=== PATIENT | female | born 1965 | race Two or more races ===

== ENCOUNTER 2025-07-06 18:52 | Emergency (ER) | payer OTHER, SELFPAY ==
[2025-07-06 18:56] VITALS: BP 123/73; PULSE 112; RESP 18; TEMP 36.8; O2SAT 94
[2025-07-06 18:59] VITALS: BMI 26.6
[2025-07-06 19:00] VITALS: PULSE 111; RESP 16; O2SAT 98
--- NOTE | 2025-07-06 19:07 | PD.EDSYNC ---
ED Syncope RME/HPI General Stated Complaint: SYNCOPE Time Seen by Provider: 07/06/25 19:21 Arrival date/time: 07/06/25 18:52 RME / HPI RME / HPI narrative: This section includes all my notes and documentations, including HPI, PE, and ED course. Pepe Ku MD HPI: 59 y/o female with Hx of HTN presents with near syncopal episode just [employer]. Patient was sitting on the toilet after BM when she began feeling nauseated and lightheaded. She almost passed out. Patient remained seated on the toilet and but did not pass out and did not fall. Denies headache, chest pain runny nose, vomiting, abdominal pain, fever, or recent illness. Currently, feels almost back to normal. No other complaints. ROS: All negative except as documented in HPI. Physical Exam: General: Alert and oriented. No acute distress. Eyes: Conjunctivae and lids clear. EOMI. PERRL. ENT: No signs of head trauma. Neck: Supple. No carotid bruit. No JVD. Heart: RRR. Lungs: No respiratory distress. Good air movement. No rhonchi, wheezing, rales. Chest: No tenderness. Abdomen: Soft and nontender. Normal bowel sounds. No distension. No rebound or guarding. Back: No tenderness. Legs: No clubbing, cyanosis, edema. Skin: Warm and dry. Neuro: Alert and oriented X 3. Cranial Nerves II-XII grossly intact. No peripheral motor deficits. Musculoskeletal: All major joints and bones are not tender with no limited ROM. I reviewed EMS notes. I reviewed all diagnostic test results: My interpretation of the EKG is: Sinus tachycardia (109 bpm) with nonspecific ST-T changes. My interpretation of the chest x-ray is: NAD. My review of the Head/Brain CT report is: NAD. Blood tests and urine tests unremarkable except Mg 1.5. Covid/Influenza: Negative. At this point, diagnoses include: Hypomagnesemia and vasovagal episode. Treatment here included: IVF, Zofran 4 mg, and MgSO4 2 gram IV. She felt much better. Recommended more outpatient workup. Based on my best medical judgment, made decision no further evaluation or treatment indicated at this time. Patient understands and agrees to the discharge instructions customized and printed, see below. Discharge instructions from Dr. Ku: 1. After extensive evaluation, there is no life-threatening condition.? Such as stroke or brain tumor or heart attack or pulmonary embolism (blood clots in your lungs) or pneumothorax (collapsed lung). 2. You had a vasovagal episode, see attached handout. Everyone has this vasovagal reflex. When triggered, your heart slows down and your brain does not get enough blood flow and passed out or almost passed out. Pushing too hard during bowel movements is a common trigger. 3. Your magnesium level was very low today and you were given IV magnesium. Increase food rich in magnesium. Such as green and leafy vegetables and peanuts and almonds and cashews. 4. See a private doctor on 07/07/2025 for recheck and further care, including second opinion. Ask to review all test results and official radiology reports, to make sure you receive all necessary follow-ups and monitoring, including repeat magnesium. To make sure there is no serious underlying heart condition, ask to help you get more tests for your heart that cannot be done here in the ER.? Such as Holter Monitor (cardiac monitoring at home from a day to even a month), heart stress test (on treadmill or with medication), echocardiogram (imaging of your heart structures), heart catherization (checking for blockages in your heart arteries), and a referral to see a Purchase Request Editor. 5. Seek immediate medical care with worsening or with any concerns.?? Pepe Ku MD Related Data Home Medications ?Medication ?Instructions ?Recorded ?Confirmed hydrochlorothiazide 12.5 mg capsule 12.5 mg PO QDAY 11/06/19 11/06/19 Previous Rx's ?Medication ?Instructions ?Recorded azithromycin 250 mg tablet See Rx Instructions PO .COMPLEX #6 10/25/20 tabs diphenhydramine HCl 25 mg capsule 25 mg PO Q8H PRN allergic symptoms 12/10/20 (Benadryl) #30 caps diphenhydramine HCl 25 mg capsule 50 mg (2 x 25 mg) PO TID PRN 03/23/21 (Benadryl) itching #30 caps benzonatate 100 mg capsule 100 mg PO TID PRN cough #20 caps 03/30/22 cetirizine 10 mg capsule (Zyrtec) 10 mg PO QDAY PRN allergy symptoms 03/30/22 #30 caps Allergies Allergy/AdvReac Type Severity Reaction Status Date / Time codeine AdvReac Intermediate Abdominal Verified 07/06/25 19:00 Pain Review of Systems Review of Systems Systems Reviewed: All systems reviewed, normal except as documented Past Medical History Past Medical History CARDIAC: Positive Hypercholesterolemia and Hypertension ED Exam Narrative Physical exam: Refer to HPI Course Course Course Narrative: CXR is ordered for determining the etiology of shortness of breath. Quality Measures none Orders Category Date Time Status Bedside COVID-19 Antigen Test NOW Care 07/06/25 19:08 Completed Bedside Influenza A&B Antigen Test NOW Care 07/06/25 19:08 Completed EKG (ED ONLY) *Do not use* NOW Care 07/06/25 19:09 Completed Saline [Insert IV] NOW Care 07/06/25 19:08 Completed Straight [In and Out Catheter] X1 Care 07/06/25 19:[address] head/brain wo con Stat Exams 07/06/25 19:09 Completed EKG (ED Only) Stat Exams 07/06/25 19:09 Draft XR chest 1V portable Stat Exams 07/06/25 19:09 Completed Alcohol, Blood Medical Stat Lab 07/06/25 19:38 Completed BNP [B-Type Natriuretic Peptide] Stat Lab 07/06/25 19:38 Completed Bilirubin,Direct Stat Lab 07/06/25 19:38 Completed CBC Stat Lab 07/06/25 19:38 Completed CMP [Comprehensive Metabolic Panel] Stat Lab 07/06/25 19:38 Completed D-Dimer Stat Lab 07/06/25 19:38 Completed Drug Screen,Urine Stat Lab 07/06/25 20:58 Completed Free T4 (Free Thyroxine) Stat Lab 07/06/25 19:38 Completed Magnesium Stat Lab 07/06/25 19:38 Completed TSH [Thyroid Stimulating Hormone] Stat Lab 07/06/25 19:38 Completed Troponin I Stat Lab 07/06/25 19:38 Completed UA, C/S IF [Urinalysis, C/S if Indicated] Stat Lab 07/06/25 20:58 Completed Magnesium Sulfate 2 GM Ivpb [Magnesium Sulfate Ivpb] Med 07/06/25 20:21 Discontinued 2 gm in 50 ml IV X1 Ondansetron Inj [Zofran Inj] Med 07/06/25 19:08 Discontinued 4 mg IVP X1 ONE Sodium Chloride 0.9% 1000 ml [Ns] 1,000 ml Med 07/06/25 19:08 Discontinued IV 999 mls/hr Vital Signs Vital signs: Vital Signs Temperature 98.2 F 07/06/25 18:56 Pulse Rate 112 H 07/06/25 18:56 Respiratory Rate 18 07/06/25 18:56 Blood Pressure 123/73 07/06/25 18:56 Pulse Oximetry (%) 94 L 07/06/25 18:56 Oxygen Delivery Method Room Air 07/06/25 18:56 Syncope MDM Narrative MDM Narrative:: Scribe Attestation: I, Michelle Ley, am scribing for and in the presence of Dr. Ku. Provider Notation: Although this document has been carefully reviewed, there may still be some phonetic and other typographical errors.? These errors are purely grammatical due to imperfections in the software program and should not be construed in any way to? compromise the substance of the patient's medical care during this visit. 59 y/o female with Hx of HTN presents with near syncopal episode just [employer]. Patient was sitting on the toilet after BM when she began feeling nauseated and lightheaded. She almost passed out. Patient remained seated on the toilet and but did not pass out and did not fall. Denies headache, chest pain runny nose, vomiting, abdominal pain, fever, or recent illness. Currently, feels almost back to normal. No other complaints. Patient data External records reviewed:: [facility] previous records (Reviewed prior ED records from 05/16/24. Patient was seen for Dependent edema.) and EMS form Clinical information provided by:: patient and EMS Social determinants that could affect healthcare access:: none Patient has the following chronic illnesses:: Hypercholesterolemia and Hypertension How is presenting disease/condition affected by chronic disease/condition?: exacerbated by Evaluation data The following diagnostics were reviewed and interpreted by me:: lab results, radiology exam(s) and EKG tracing(s) (My interpretation of the EKG is: Sinus tachycardia (109 bpm) with nonspecific ST-T changes. Pepe Ku MD) Lab and/or radiology exams considered but not ordered:: None Interpretation Summary: I reviewed all diagnostic test results: My interpretation of the EKG is: Sinus tachycardia (109 bpm) with nonspecific ST-T changes. My interpretation of the chest x-ray is: NAD. My review of the Head/Brain CT report is: NAD. Blood tests and urine tests unremarkable except Mg 1.5. Covid/Influenza: Negative. Medications / Prescriptions Medications or Prescriptions considered but not ordered:: None Medication administrations:: Medication Administration History Discontinued Medications Sodium Chloride (Ns) 1,000 mls @ 999 mls/hr IV .Q1H1M ONE Stop: 07/06/25 20:08 Last Infusion: 07/06/25 21:50 Dose: Infused Documented By: Admin: 07/06/25 19:17 Dose: 999 mls/hr Documented By: DWAIN Magnesium Sulfate (Magnesium Sulfate Ivpb) 2 gm in 50 mls @ 25 mls/hr IV X1 ONE Stop: 07/06/25 22:20 Last Infusion: 07/06/25 23:37 Dose: Infused Documented By: Admin: 07/06/25 21:48 Dose: 25 mls/hr Documented By: ESTHER Ondansetron HCl (Ondansetron Inj 2 Mg/Ml Inj 2 Ml) 4 mg IVP X1 ONE; Protocol Stop: 07/06/25 19:09 Last Admin: 07/06/25 19:52 Dose: Not Given Documented By: ESTHER Non-Admin Reason: Patient Refused Treatment here included: IVF, Zofran 4 mg, and MgSO4 2 gram IV. Consultations Consultation(s) initiated? (list below): No Diagnosis Syncope Differential Diagnosis: syncope due to orthostatic hypotension, vasovagal syncope, complete atrioventricular block, subarachnoid hemorrhage, pulmonary embolism and dehydration Most likely diagnosis given after review of the tests above:: Hypomagnesemia and vasovagal episode. Admission Indicated Admission indicated?: not indicated Explain why admission is indicated or not indicated:: With significant improvement and no condition needing emergent intervention, there was no indication for admission. Admission Request Was there a request for admission?: No Disposition Plan Disposition Plan: Discharge Discharge Attestation Discharge Attestation: The patient and all family members were given an opportunity to ask questions and understood the discharge instructions. Discharge instructions specifically effects, indications for sooner follow up or return to the emergency department, and the expected course of current diagnosis. Patient condition: Stable Discharge Plan Plan Patient Disposition: HOME (Self Care) Prescriptions/Referrals Prescriptions/Med Rec: No Action benzonatate 100 mg capsule 100 mg PO TID PRN (Reason: cough) Qty: 20 0RF Zyrtec 10 mg capsule 10 mg PO QDAY PRN (Reason: allergy symptoms) Qty: 30 0RF hydrochlorothiazide 12.5 mg Capsule 12.5 mg PO QDAY azithromycin 250 mg tablet See Rx Instructions .ROUTE .COMPLEX Qty: 6 0RF Rx Instructions: take 500 mg today (day 1), then 250 mg for 4 days (days 2-5) diphenhydramine HCl [Benadryl] 25 mg capsule 25 mg PO Q8H PRN (Reason: allergic symptoms) Qty: 30 0RF diphenhydramine HCl [Benadryl] 25 mg capsule 50 mg PO TID PRN (Reason: itching) Qty: 30 0RF Referrals: Tonny Lawrence PA-C [Primary Care Provider] - In 1 week Problem List Clinical Impression: Vaso vagal episode, Hypomagnesemia Patient/Caregiver Discharge Instructions Discharge Activity: activity as tolerated Education Materials: Magnesium (Blood), ED Fainting, Vagal Reaction Additional Instructions: Discharge instructions from Dr. Ku: 1. After extensive evaluation, there is no life-threatening condition.? Such as stroke or brain tumor or heart attack or pulmonary embolism (blood clots in your lungs) or pneumothorax (collapsed lung). 2. You had a vasovagal episode, see attached handout. Everyone has this vasovagal reflex. When triggered, your heart slows down and your brain does not get enough blood flow and passed out or almost passed out. Pushing too hard during bowel movements is a common trigger. 3. Your magnesium level was very low today and you were given IV magnesium. Increase food rich in magnesium. Such as green and leafy vegetables and peanuts and almonds and cashews. 4. See a private doctor on 07/07/2025 for recheck and further care, including second opinion. Ask to review all test results and official radiology reports, to make sure you receive all necessary follow-ups and monitoring, including repeat magnesium. To make sure there is no serious underlying heart condition, ask to help you get more tests for your heart that cannot be done here in the ER.? Such as Holter Monitor (cardiac monitoring at home from a day to even a month), heart stress test (on treadmill or with medication), echocardiogram (imaging of your heart structures), heart catherization (checking for blockages in your heart arteries), and a referral to see a Purchase Request Editor. 5. Seek immediate medical care with worsening or with any concerns.?? Print Language: Divehi Stand Alone Forms: Britt Award Info., Patient Portal Info Letter
--- NOTE | 2025-07-06 19:09 | XR_ITS ---
Examination: AP chest single view TECHNIQUE: AP portable upright chest single view Date and time: July 06, 2025 1930 hours INDICATIONS: Shortness of breath today. FINDINGS: Normal heart size The lungs are clear. The osseous structures are intact IMPRESSION: No active disease
--- NOTE | 2025-07-06 19:09 | EKG_ITS ---
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
--- NOTE | 2025-07-06 19:09 | XR_ITS ---
Examination: CT brain head without contrast. 2-D sagittal coronal reconstructions Date and time of exam:July 06, 2025 1926 hours INDICATIONS: Syncopal episode today. CTDI: vol (mGy):46.1. DLP: (mGycm):910. Technique: Multiple CT axial sections of the brain have been obtained, 5 mm slice thickness. Contrast has not been administered. 2-D sagittal, coronal reconstructions have been obtained Low dose protocols were performed. One or more of the following dose reduction techniques were used; automated exposure control, adjustment of the mA and/or KV according to patient size, use of iterative reconstruction technique. Findings: No significant ventricular enlargement. Intra-axial or extra-axial hemorrhage density is not seen. No mass effect or midline shift Basal cisterns are not remarkable. Fourth ventricle is midline. Cranial vault intact. Impression: Negative for acute hemorrhage, mass effect or midline shift
[2025-07-06] MEDS: SODIUM CHLORIDE 0.9% 1000 ML 1,000 ML 999 ML IV (19:17)
[2025-07-06 19:41] VITALS: BP 113/75; PULSE 111; RESP 16; TEMP 37.1; O2SAT 95
[2025-07-06 19:47] LABS: Basophils # (Auto) 0.0 Thou/mm3 (0.0-0.2); Basophils % (Auto) 0 % (0-2.5); Eosinophils # (Auto) 0.0 Thou/mm3 (0.0-0.5); Eosinophils % (Auto) 0 % (0-10); Hematocrit 42.6 % (36.0-46.0); Hemoglobin 13.8 g/dL (12.0-16.0); Immature Granulocytes Auto 0.03 Thou/mm3 (0.00-0.00); Lymphocytes # (Auto) 1.1 Thou/mm3 (1.0-4.8); Lymphocytes % (Auto) 10 % (10-50); Mean Corpuscular HGB Conc 32.4 g/dl (31.0-37.0); Mean Corpuscular Hemoglobin 28.4 pg (25.0-35.0); Mean Corpuscular Volume 88 fL (80-100); Monocytes # (Auto) 0.8 Thou/mm3 (0.0-0.8); Monocytes % (Auto) 7 % (0-12); Neutrophils # (Auto) 8.7 Thou/mm3 (1.8-7.7); Neutrophils % (Auto) 82 % (37-80); Nucleated Red Blood Cell # 0.00 Thou/mm3 (0.00-0.00); Nucleated Red Blood Cell % 0 /100 WBC (0); Platelet Count 231 Thou/mm3 (140-440); RDW Standard Deviation 43.8 fL (36.4-46.3); Red Blood Count 4.86 Miln/mm3 (4.00-5.20); White Blood Count 10.6 Thou/mm3 (3.6-11.0)
[2025-07-06 20:01] LABS: B-Type Natriuretic Peptide < 20 pg/mL (0-100)
[2025-07-06 20:10] LABS: D-Dimer < 250 ng/mL (<600)
[2025-07-06 20:14] LABS: Alanine Aminotransferase 50 U/L (10-49); Albumin, Serum 4.8 gm/dL (3.4-4.8); Albumin/Globulin Ratio 1.6 (1.2-2.2); Alcohol, Blood Medical < 3.0 mg/dL (0-10.0); Alkaline Phosphatase 111 U/L (46-116); Anion Gap 11 (7-16); Aspartate Amino Transferase 29 U/L (0-34); BUN/Creatinine Ratio 12 Ratio (12-20); Bilirubin,Direct 0.1 mg/dL (0.0-0.3); Bilirubin,Total 0.5 mg/dL (0.3-1.2); Blood Urea Nitrogen 12 mg/dL (9-23); Calcium 9.5 mg/dL (8.3-10.6); Calcium (Corrected) 9.5 mg/dL (8.5-10.1); Carbon Dioxide 24.1 mMol/L (20.0-31.0); Chloride 102 mMol/L (98-107); Creatinine (Component) 1.0 mg/dL (0.6-1.3); Estimated Creatinine Clearance 50.6 mL/min (>60); Free T4 (Free Thyroxine) 1.06 ng/dL (0.89-1.76); Globulin 3.0 gm/dL (2.3-3.5); Glucose 145 mg/dL (74-106); Magnesium 1.5 mg/dL (1.6-2.6); Osmolality,Calculated 276 (275-295); Potassium 4.3 mMol/L (3.4-5.1); Sodium 137 mMol/L (136-145); Thyroid Stimulating Hormone 1.12 uIU/mL (0.55-4.78); Total Protein 7.8 gm/dL (5.7-8.2); Troponin I < 0.002 ng/mL (0.0-0.045); eGFR > 60 See Note
[2025-07-06 21:27] LABS: Collection Type, Urine Clean Catch
[2025-07-06] MEDS: Magnesium Sulfate 2 GM Ivpb 2 GM/50 ML BAG IV (21:48)
[2025-07-06 21:53] LABS: Bacteria,Urine Rare; Bilirubin,Urine Negative (Negative); Blood,Urine Negative (Negative); Clarity,Urine Clear (Clear/Hazy); Color,Urine Lt-Yellow (Lt Yel-Yel); Culture Indicated,Urine Not Indicated; Glucose, Urine Negative (Negative); Hyaline Casts,Urine < 1 /hpf (0-1); Ketones,Urine Negative (Negative); Leukocyte Esterase,Urine Positive (Negative); Nitrite,Urine Negative (Negative); PH,Urine 7.0 (5.0-7.0); Protein,Urine Negative (Neg - Trace); RBC,Urine 5 /hpf (0-3); Specific Gravity,Urine 1.016 (1.001-1.035); Squamous Epithelial Cell,Urine 4 /hpf (0-5); Urobilinogen,Urine Negative mg/dL (0.0-1.0); WBC,Urine 7 /hpf (0-5)
[2025-07-06 22:07] LABS: Amphetamine/Methamp Scrn,U Negative (Negative); Barbiturate Screen,Urine Negative (Negative); Benzodiazepines Screen,Urine Negative (Negative); Benzoylecgonine Screen, Ur Negative (Negative); Fentanyl Screen,Urine Negative (Negative); Opiate Screen,Urine Negative (Negative); THC Screen,Urine Negative (Negative)
[2025-07-06 23:34] VITALS: BP 146/80; PULSE 117; RESP 19; TEMP 37.1
== END 2025-07-06 23:37 | disposition home or self-care (01) ==
PROVIDERS: Emergency Provider Emergency Medicine; PCP Physician Assistant
DX: E83.42 Hypomagnesemia (principal); R55 Syncope and collapse; R06.02 Shortness of breath; R00.0 Tachycardia, unspecified; I10 Essential (primary) hypertension
CPT/HCPCS: 36415; 70450; 71045; 80053; 80307; 80320; 81001; 82248; 83735; 83880; 84439; 84443; 84484; 85025; 85379; 87400; 87811; 93005; 96361; 96365; 96366; 99283; J3475; J7030; G0480